=== PATIENT | female | born 1995 | race Two or more races ===

== ENCOUNTER 2025-09-14 20:41 | Emergency (ER) | payer MEDICAID ==
[~2025-09-14] VITALS: Ht 154.9 cm; Wt 53.1 kg
[2025-09-14 23:00] LABS: PLATELET COUNT (AUTO) 235 K/uL (150-450); RED BLOOD CELL COUNT(AUTO) 4.49 MIL/uL (4.0-5.2); RED CELL DISTRIBUTION WIDTH 12.7 % (11.5-15.0); WHITE BLOOD COUNT (AUTO) 5.7 K/uL (4.3-11.0)
[2025-09-14 23:04] LABS: CALCIUM, SERUM 9.0 mg/dL (8.5-10.1); CREATININE 0.9 mg/dL (0.6-1.3); SODIUM SERUM 143 mmol/L (136-145); UREA NITROGEN, BLOOD 14 mg/dL (7-18)
[2025-09-14 23:10] LABS: INR 0.93 (0.91-1.10)
[2025-09-14] MEDS ORDERED: MAG HYDROX/AL HYDROX/SIMETH 30 ML UDC ONE (23:20)
[2025-09-14] MEDS ORDERED: LIDOCAINE VISCOUS 2% UD 15 ML UDC ONE (23:21)
[2025-09-14] MEDS: MAG HYDROX/AL HYDROX/SIMETH 30 ML UDC PO ONE (23:23)
[2025-09-14] MEDS: LIDOCAINE VISCOUS 2% UD 15 ML UDC MM ONE (23:23)
[2025-09-14 23:49] VITALS: BP 111/75; TEMP 98.1; O2SAT 99
== END 2025-09-15 01:04 | disposition home or self-care (01) ==
LOC: ER 20:45
DX: R07.9 Chest pain, unspecified (principal); F17.200 Nicotine dependence, unspecified, uncomplicated; J45.909 Unspecified asthma, uncomplicated; K21.9 Gastro-esophageal reflux disease without esophagitis
CPT/HCPCS: 36415; 71045-TC; 80048-TC; 84484-TC; 85025-TC; 85378-TC; 85730-TC